=== PATIENT | male | born 1995 | race Caucasian/White ===

== ENCOUNTER 2023-08-26 10:38 | Emergency (ER) | payer SELFPAY ==
[2023-08-26 10:50] VITALS: BP 130/98; PULSE 106; TEMP 36.7; O2SAT 96; BMI 33.4
--- NOTE | 2023-08-26 10:55 | XRR_ITS ---
PROCEDURE INFORMATION: Exam: XR Chest Exam date and time: 08/26/2023 11:11 AM Age: 28 years old Clinical indication: Abdominal pain; Patient HX: Abdomen pain x1 day, diarrhea TECHNIQUE: Imaging protocol: Radiologic exam of the chest. Views: 1 view. COMPARISON: No relevant prior studies available. FINDINGS: Lungs: No focal lung consolidation. Pleural spaces: No pleural effusion. No pneumothorax. Heart/Mediastinum: Unremarkable. No cardiomegaly. Bones/joints: No acute bony abnormality. PROCEDURE INFORMATION: Exam: XR Abdomen Exam date and time: 08/26/2023 11:11 AM Age: 28 years old Clinical indication: Abdominal pain; Patient HX: Abdomen pain x1 day, diarrhea TECHNIQUE: Imaging protocol: Radiologic exam of the abdomen. Views: 2 Views. Upright and supine views. COMPARISON: No relevant prior studies available. FINDINGS: Gastrointestinal tract: Heavy fecal pattern noted compatible with constipation. Recommend clinical correlation. Intraperitoneal space: No free air seen beneath the hemidiaphragms. Bones/joints: No acute bony abnormality. XR/XR acute abdomen series [id number] IMPRESSION: No focal lung consolidation. IMPRESSION: Heavy fecal pattern noted compatible with constipation. Recommend clinical correlation.
--- NOTE | 2023-08-26 10:58 | ED_ITS ---
HPI - Abdominal Pain 2 General: Chief Complaint: Abdominal Pain Stated Complaint: Abd pain Time Seen by Provider: 08/26/23 10:46 History of Present Illness: Healthy 28-year-old male who presents the emergency room with abdominal pain. Says this started yesterday. He had some diarrhea 2 days ago. 5 episodes. None since. Pain is primarily in his epigastrium. No nausea or vomiting. Says pain at times is in his lower abdomen as well and radiates up into the left side of his abdomen. No dysuria. No fevers. No altered mental status. No chest pain. No shortness of breath. No surgical history. No regular alcohol use. Review of Systems 2 Narrative: Constitutional symptoms: Negative except as documented in HPI. Skin symptoms: Negative except as documented in HPI. Eye symptoms: Negative except as documented in HPI. ENMT symptoms: Negative except as documented in HPI. Respiratory symptoms: Negative except as documented in HPI. Cardiovascular symptoms: Negative except as documented in HPI. Gastrointestinal symptoms: Negative except as documented in HPI. Genitourinary symptoms: Negative except as documented in HPI. Musculoskeletal symptoms: Negative except as documented in HPI. Neurologic symptoms: Negative except as documented in HPI. Psychiatric symptoms: Negative except as documented in HPI. Endocrine symptoms: Negative except as documented in HPI. Physical Exam 2 Narrative: EXAM NARRATIVE: General: Alert, no acute distress. Skin: Warm, dry. Head: Normocephalic, atraumatic. Neck: Supple, trachea midline. Eye: Extraocular movements are intact. Ears, nose, mouth and throat: mucosa moist. Cardiovascular: Regular, Normal peripheral perfusion. Respiratory: Lungs are clear to auscultation, respirations are non-labored, breath sounds are equal, Symmetrical chest wall expansion. Gastrointestinal: Soft, epigastric tenderness to palpation, Non distended, Normal bowel sounds. Musculoskeletal: Normal ROM, no deformity. Neurological: Alert and oriented, No focal neurological deficit observed. Psychiatric: Cooperative, appropriate mood & affect. Course 2 Vital Signs: Vital signs: Vital Signs Temperature 98.1 F 08/26/23 10:50 Pulse Rate 102 H 08/26/23 11:30 Respiratory Rate 16 08/26/23 11:30 Blood Pressure 138/94 08/26/23 11:30 Pulse Oximetry 94 08/26/23 11:30 Oxygen Delivery Me thod Room Air 08/26/23 11:30 MDM - Abdominal Pain Medical Decision Making Medical decision making: Differential diagnosis including but not limited to and based on the above HPI, review of systems and physical exam: In this patient with epigastric pain would have concern for peptic ulcer disease, gastritis, viral gastroenteritis, hepatitis, cholecystitis, constipation Orders placed to evaluate differential diagnosis based on the above differential, HPI and physical exam Lab Review: Laboratory results were reviewed and interpreted by myself the emergency room physician. Patient has mild leukocytosis and some elevation in his CRP. Could have something viral going on. CT was done. Acute abdominal series: chest x-ray: No acute process. No obvious infiltrates. No pneumothorax. No cardiomegaly. This was reviewed and interpreted by myself the emergency room physician Abdomen x-ray: Nonspecific bowel gas pattern. No evidence of free air or obstruction. This was reviewed and interpreted by myself the emergency room physician. CT of the abdomen and pelvis with contrast: Normal gallbladder. Normal appendix. Some increased stool. Some mild haziness over the pancreas which might indicate some pancreatitis. However the patient does not have any nausea or vomiting. Pain is in that area but his lipase is only 90 so very unlikely that this is a pancreatitis. This was reviewed and interpreted by myself the emergency room physician. I also reviewed the radiologist report. I reviewed the patient's medical record. Reexamination: Patient remained stable. No vomiting. Still with some mild abdominal pain. Lab Data 08/26/23 11:36 08/26/23 11:36 Labs/Radiology: Radiology Impressions Chest/Abdomen X-ray 08/26/23 10:55 IMPRESSION: No focal lung consolidation. IMPRESSION: Heavy fecal pattern noted compatible with constipation. Recommend clinical correlation. Abdomen/Pelvis CT 08/26/23 12:08 IMPRESSION: Mild fat stranding is seen around the pancreas. Findings raise concern for acute pancreatitis. Recommend clinical correlation and correlation with lipase levels. Laboratory Results WBC 11.93 10^3/uL (3.29-11.43) H 08/26/23 11:36 RBC 5.21 10^6/uL (3.85-5.65) 08/26/23 11:36 Hgb 15.80 g/dL (11.27-16.99) 08/26/23 11:36 Hct 44.7 % (37-53) 08/26/23 11:36 MCV 85.8 fl (82-101) 08/26/23 11:36 MCH 30.3 pg (27-33) 08/26/23 11:36 MCHC 35.3 g/dL (30-55) 08/26/23 11:36 RDW 11.7 % (12.1-15.1) L 08/26/23 11:36 Plt Count 193 10^3/cmm (157-399) 08/26/23 11:36 MPV 11.8 fL (7.4-10.4) H 08/26/23 11:36 Neut % (Auto) 70.3 % 08/26/23 11:36 Lymph % (Auto) 18.8 % 08/26/23 11:36 [place] % (Auto) 7.0 % 08/26/23 11:36 Eos % (Auto) 2.6 % 08/26/23 11:36 Baso % (Auto) 0.5 % 08/26/23 11:36 Neut # (Auto) 8.39 10^3/uL (1.8-7.7) H 08/26/23 11:36 Lymph # (Auto) 2.2 10^3/uL (0.8-4.8) 08/26/23 11:36 [place] # (Auto) 0.8 10^3/uL (0.2-0.9) 08/26/23 11:36 Eos # (Auto) 0.3 10^3/uL (0.0-0.8) 08/26/23 11:36 Baso # (Auto) 0.1 10^3/uL (0.0-0.1) 08/26/23 11:36 Nucleated RBC % (auto) 0 % 08/26/23 11:36 Nucleated RBCs # 0.0 /100WBC 08/26/23 11:36 Sodium 138 mmol/L (136-145) 08/26/23 11:36 Potassium 3.7 mmol/L (3.5-5.1) 08/26/23 11:36 Chloride 103 mmol/L (98-107) 08/26/23 11:36 Carbon Dioxide 25 mmol/L (22-29) 08/26/23 11:36 Anion Gap 13.7 (5-19) 08/26/23 11:36 BUN 12 mg/dL (6-20) 08/26/23 11:36 Creatinine 0.6 mg/dL (0.7-1.2) L 08/26/23 11:36 GFR Calculation 161.6 mL/min (90-130) H 08/26/23 11:36 Glucose 122 mg/dL (65-115) H 08/26/23 11:36 Calculated Osmolality 287 mOsm/kg (285-295) 08/26/23 11:36 Calcium 9.1 mg/dL (8.5-10.5) 08/26/23 11:36 Total Bilirubin 1.5 mg/dL (0.15-1.2) H 08/26/23 11:36 AST 19 U/L (0-40) 08/26/23 11:36 ALT 42 U/L (0-41) H 08/26/23 11:36 Alkaline Phosphatase 128 U/L (40-130) 08/26/23 11:36 C-Reactive Protein 66.7 mg/L (0.0-4.9) H 08/26/23 11:36 Total Protein 7.3 g/dL (6.6-8.7) 08/26/23 11:36 Albumin 4.2 g/dL (3.5-5.2) 08/26/23 11:36 Globulin 3.1 g/dL (1.3-4.6) 08/26/23 11:36 Lipase 91 U/L (13-60) H 08/26/23 11:36 Urine Color Yellow (Yellow) 08/26/23 12:05 Urine Appearance Cloudy (CLEAR) A 08/26/23 12:05 Urine pH 7 (5-7) 08/26/23 12:05 Ur Specific [place] 1.015 (1.005-1.030) 08/26/23 12:05 Urine Protein Neg (Negative) 08/26/23 12:05 Urine Glucose (UA) Norm (Normal) 08/26/23 12:05 Urine Ketones Negative (Negative) 08/26/23 12:05 Urine Blood Neg (Negative) 08/26/23 12:05 Urine Nitrate Negative (Negative) 08/26/23 12:05 Urine Bilirubin Neg (Negative) 08/26/23 12:05 Urine Urobilinogen Norm mg/dL (Negative) 08/26/23 12:05 Ur Leukocyte Esterase Negative (Negative) 08/26/23 12:05 Urine RBC None /hpf (0-2) 08/26/23 12:05 Urine WBC None /hpf (0-5) 08/26/23 12:05 Ur Squamous Epith Cells None /hpf (0-5) 08/26/23 12:05 Amorphous Sediment 3+ /hpf 08/26/23 12:05 Urine Bacteria 1+ /hpf (NONE) H 08/26/23 12:05 All radiology interpretation(s) finalized by discharge Other Data Assessment and plan: Abdominal pain Possible constipation - Discharged home - Discussed findings and plan with patient. Answered any questions. - All laboratory values were reviewed and interpreted personally by myself, the ER physician - All imaging was reviewed and interpreted personally by myself, the ER physician. - Evaluation and treatment of this problem were appropriate in the emergency setting Discharge Plan Discharge Patient Disposition: Home Clinical Impression: Abdominal pain Condition: Stable Prescriptions: No Action No Known Home Medications Discharge Orders: Discharge ED (Routine); Ordered 08/26/23 Ordered By: Shayy Hubbard Referrals: Ramu Fowler FNP [Primary Care Provider] - Discharge Diet: Advance as tolerated Discharge Activity: Increase activity as tolerated Patient Instructions: Abdominal Pain (ED) Coding Level of Care Code ED [employer] for Fredy Reaves
[2023-08-26 11:30] VITALS: BP 138/94; PULSE 102; RESP 16; O2SAT 94
[2023-08-26 11:56] LABS: Basophils # 0.1 10^3/uL (0.0-0.1); Basophils % 0.5 %; Eosinophils # 0.3 10^3/uL (0.0-0.8); Eosinophils % 2.6 %; Hematocrit 44.7 % (37-53); Lymphocytes # 2.2 10^3/uL (0.8-4.8); Lymphocytes % 18.8 %; Mean Corpuscular HGB Conc 35.3 g/dL (30-55); Mean Corpuscular Hemoglobin 30.3 pg (27-33); Mean Corpuscular Volume 85.8 fl (82-101); Mean Platelet Volume 11.8 fL (7.4-10.4); Monocytes # 0.8 10^3/uL (0.2-0.9); Neutrophils # 8.39 10^3/uL (1.8-7.7); Neutrophils % 70.3 %; Nucleated Red Blood Cells % 0 %; Platelet Count 193 10^3/cmm (157-399); Red Blood Count 5.21 10^6/uL (3.85-5.65); Red Cell Distribution Width 11.7 % (12.1-15.1); White Blood Count 11.93 10^3/uL (3.29-11.43)
--- NOTE | 2023-08-26 12:08 | CTR_ITS ---
PROCEDURE INFORMATION: Exam: CT Abdomen And Pelvis With Contrast Exam date and time: 08/26/2023 1:10 PM Age: 28 years old Clinical indication: Abdominal pain TECHNIQUE: Imaging protocol: Computed tomography of the abdomen and pelvis with contrast. Radiation optimization: All CT scans at this facility use at least one of these dose optimization techniques: automated exposure control; mA and/or kV adjustment per patient size (includes targeted exams where dose is matched to clinical indication); or iterative reconstruction. Contrast material: OMNI 350; Contrast volume: 100 ml; Contrast route: INTRAVENOUS (IV); COMPARISON: CR (ABDOMEN, ) 08/26/2023 11:11 AM RADIATION DOSE METRICS: Total DLP (mGy-cm): 877.19 FINDINGS: Liver: The liver is unremarkable in appearance. Gallbladder and bile ducts: Gallbladder unremarkable in appearance without radio-opaque stone. No intra or extrahepatic biliary ductal dilation. Pancreas: Mild fat stranding is seen around the pancreas. Acute pancreatitis cannot be excluded. Recommend correlation with lipase levels. Spleen: The spleen is normal in size and contour. Adrenal glands: Adrenal glands are unremarkable in appearance. Kidneys and ureters: Kidneys and ureters are unremarkable in appearance. No hydronephrosis. No radio-opaque stone. Stomach and bowel: Stomach and bowel grossly unremarkable. No evidence of bowel obstruction. Heavy fecal pattern noted compatible with constipation. Recommend clinical correlation. Appendix: Visualized portions of the appendix are unremarkable. Intraperitoneal space: No ascites. Vasculature: Unremarkable. No abdominal aortic aneurysm. Lymph nodes: No abdominal or pelvic lymphadenopathy. Urinary bladder: Bladder unremarkable. Reproductive: Prostate measures up to 3.2 cm in size. Bones/joints: No acute bony abnormality. Soft tissues: Umbilical hernia containing fat. CT/CT abdomen pelvis w con* [id number] IMPRESSION: Mild fat stranding is seen around the pancreas. Findings raise concern for acute pancreatitis. Recommend clinical correlation and correlation with lipase levels.
[2023-08-26 12:18] LABS: Specific Gravity, Urine 1.015 (1.005-1.030); Urine Appearance Cloudy (CLEAR); Urine Color Yellow (Yellow); pH Urine 7 (5-7)
[2023-08-26 12:19] LABS: Bilirubin Urine Neg (Negative); Blood Urine Neg (Negative); Glucose Urine UA Norm (Normal); Ketones Urine Negative (Negative); Leukocyte Esterase Urine Negative (Negative); Nitrate Urine Negative (Negative); Protein Urine Neg (Negative); Urobilinogen Urine Norm (Negative)
[2023-08-26 12:21] LABS: Add Urine Culture? No; Amorphous Sediment Urine 3+ /hpf; Bacteria Urine 1+ /hpf
[2023-08-26 12:34] LABS: Alanine Aminotransferase 42 U/L (0-41); Albumin Level 4.2 g/dL (3.5-5.2); Alkaline Phosphatase 128 U/L (40-130); Anion Gap 13.7 (5-19); Aspartate Amino Transferase 19 U/L (0-40); Blood Urea Nitrogen 12 mg/dL (6-20); C Reactive Protein 66.7 mg/L (0.0-4.9); Calcium 9.1 mg/dL (8.5-10.5); Carbon Dioxide 25 mmol/L (22-29); Chloride 103 mmol/L (98-107); Globulin 3.1 g/dL (1.3-4.6); Glomerular Filtration Rate 161.6 mL/min (90-130); Glucose 122 mg/dL (65-115); Osmolality Calculated 287 mOsm/kg (285-295); Potassium 3.7 mmol/L (3.5-5.1); Sodium 138 mmol/L (136-145); Total Bilirubin 1.5 mg/dL (0.15-1.2); Total Protein 7.3 g/dL (6.6-8.7)
[2023-08-26 12:37] LABS: Creatinine Clr Calc Pharmacy 211.7599
[2023-08-26] MEDS: iohexol 350 mg/mL 500 mL Btl (per mL) IV (13:11)
[2023-08-26 13:53] LABS: Lipase 91 U/L (13-60)
[2023-08-26 14:33] VITALS: BP 138/94; PULSE 98; RESP 16; TEMP 36.7; O2SAT 97
== END 2023-08-26 14:34 | disposition home or self-care (01) ==
PROVIDERS: Emergency Provider Emergency Medicine; PCP Nurse Practitioner Family
DX: R10.13 Epigastric pain (principal)
CPT/HCPCS: 36415; 74022; 74177; 80053; 81001; 83690; 85025; 86140; 99285; Q9967